=== PATIENT | female | born 1950 | race Hispanic/Latino ===

== ENCOUNTER 2023-10-20 12:03 | Observation (INO) | payer OTHER ==
[~2023-10-20] VITALS: Ht 157.5 cm; Wt 65.5 kg
[2023-10-20] MEDS ORDERED: SODIUM CHLORIDE 0.9% 1,000 ML IV ONE (15:00)
[2023-10-20 15:21] LABS: BASOPHILS 0.2 % (0-2); EOSINOPHILS 0.7 % (0-6); HEMATOCRIT 40.5 % (35.0-50.0); HEMOGLOBIN 13.8 g/dL (12.0-18.0); LYMPHOCYTES 11.3 % (24-44); MCH 30.5 (27-36); MCHC 34.2 g/dl (30-36); MCV 89.4 fl (81-99); MONOCYTES 10.3 % (0-12); NEUTROPHILS 77.5 % (39-80); PLATELET COUNT 186 K/uL (140-440); RBC 4.53 M/ul (4.3-5.7); RDW 12.4 (10.5-15.0)
[2023-10-20] MEDS ORDERED: HYDROmorphone HCL 1 MG/ML SYR IV PRN ×3 (15:30→18:15)
[2023-10-20 15:35] LABS: ALBUMIN 3.9 g/dL (3.4-5.0); ALBUMIN/GLOBULIN RATIO 1.05 (1.1-2.4); BILIRUBIN, TOTAL 1.3 ng/dL (0.2-1.0); BUN/CREATININE RATIO 21.78 (6.0-28.6); CALCIUM 9.5 mg/dL (8.5-10.1); CREATININE, SERUM 1.01 mg/dL (0.55-1.02); PROTEIN, TOTAL 7.6 g/dL (6.4-8.2)
[2023-10-20 17:45] VITALS: BP 156/81
--- NOTE | 2023-10-20 17:54 | NUR ---
1724 THIS RN TO ER, RECEIVES REPORT FROM KAYLEE ROMERO. PT ESCORTED TO MED-SURG ROOM 123 AT 1735 VIA [facility]. PT AMBULATES FROM [place] TO BED WITH STEADY GAIT. SPOUSE AT BEDSIDE. BELONGINGS IN SAH BAG IN ROOM. VSS. K 9 POLICE OFFICER IN ROOM USED FOR COMMUNICATIONS. VERBAL REPORT PROVIDED TO KAYLEE TRIMBLE AND JOCELYN ROJAS RN.
[2023-10-20] MEDS ORDERED: ACETAMINOPHEN 325 MG TAB PO PRN (18:15)
[2023-10-20] MEDS ORDERED: PROCHLORPERAZINE EDISYLATE 10 MG/2 ML VIAL IV PRN (18:15)
[2023-10-20] MEDS ORDERED: ondansetron HCL 4 MG/2 ML VIAL IV PRN ×2 (18:15)
[2023-10-20] MEDS ORDERED: ACETAMINOPHEN 650 MG SUPP PR PRN (18:15)
[2023-10-20] MEDS ORDERED: DEXTROSE 5% - LACTATED RINGERS 1,000 ML IV SCH ×2 (18:15)
[2023-10-20] MEDS ORDERED: HYDROCODONE/ACETA 5/325 TAB PO PRN (18:15)
[2023-10-20] MEDS ORDERED: PANTOPRAZOLE SODIUM 40 MG/10 ML VIAL IV SCH (18:19)
[2023-10-20] MEDS ORDERED: ENOXAPARIN SODIUM 40 MG/0.4 ML SYR SUB-Q SCH (18:19)
[2023-10-20] MEDS ORDERED: CEFTRIAXONE/SODIUM CHLORIDE 2 GM/100 ML PIGGYBACK IV SCH (18:28)
--- NOTE | 2023-10-20 18:52 | NUR ---
DILAUDID 0.5MG IV ADMIN AT THIS TIME FOR REPORTS OF 8/10 ABDOMINAL PAIN. PATIENT DENIES NAUSEA.
--- NOTE | 2023-10-20 19:04 | NUR ---
PT ADMISSION HISTORY AND ASSESSMENT COMPLETED WITH FORMING PROCESS LINE WORKER OZZY #[id number].
--- NOTE | 2023-10-20 19:15 | NUR ---
REPORT RECEIVED FROM DAY SHIFT RN. PT LYING IN BED TALKING ON PHONE. NO NEEDS AT THIS TIME. WHITE BOARD UPDATED. CALL LIGHT IN REACH. BED ALARM FOR SAFETY.
--- NOTE | 2023-10-20 19:46 | NUR ---
prn zofran given for reported nausea-see emar. pt reported recent emesis-unmeasured amount following drinking some water. hospital provided interpretor utilitized. iv site wnl, iv abx recently completed. pt denies additional needs, call light in reach. primary chico andrade now in room with pt.
[2023-10-20 19:57] VITALS: BP 148/66
[2023-10-20 20:00] VITALS: BP 148/66
--- NOTE | 2023-10-20 20:03 | NUR ---
PT WITH CONTINUED EMESIS AND NAUSEA AFTER 4MG ZOFRAN GIVEN UNDER ER BRIDGE ORDER. ADDITIONAL 4MG ZOFRAN GIVEN TO EQUAL 8MG ORDERED. IVF INFUSING PER ORDER. PT DENIES FURTHER NEEDS. RELIEF MAN USED. BED ALARM FOR SAFETY.
[2023-10-20 20:05] LABS: BILIRUBIN, URINE NEGATIVE (negative); BLOOD/HGB, URINE NEGATIVE (Negative); KETONE, URINE NEGATIVE (Negative); LEUK ESTERASE, URINE NEGATIVE (negative); NITRITE, URINE NEGATIVE (negative); PH, URINE 6.5 (5-7)
--- NOTE | 2023-10-20 22:03 | NUR ---
PT RESTING WITH EYES CLOSED. AWAKENS EASILY. HOSPITAL PROVIDED LATCHER USED FOR INTERACTION. EVENING ASSESSMENT COMPLETE. SCHEDULED MEDS ADMIN PER EMAR. PT DENIES PAIN OR NAUSEA AT THIS TIME. BOWEL TONES ACTIVE. ABD SOFT. PT NPO. ORAL CARE SUPPLIES PROVIDED. PT DENIES QUESTIONS OR CONCERNS. CALL LIGHT IN REACH. BED ALARM FOR SAFETY.
[2023-10-21] VITALS (9 sets, daily range): BP systolic 122–148; BP diastolic 61–97
--- NOTE | 2023-10-21 00:28 | NUR ---
PT RESTING ON LEFT SIDE WITH EYES CLOSED. RESPIRATIONS EVEN. CALL LIGHT IN REACH.
--- NOTE | 2023-10-21 02:24 | NUR ---
PT AWAKE IN BED. VS OBTAINED. UP WITH SBA TO VOID. BACK TO BED, SUREKHA WELL. GAIT STEADY. PT REPORTS BILAT HIP PAIN 09/25. PRN FOR PAIN ADMIN PER EMAR. ABD ASSESSMENT UNCHANGED. PT REMAINS NPO. ORAL CARE SUPPLIES AT BEDSIDE. IVF INFUSING PER ORDER. PT DENIES FURTHER NEEDS. BED ALARM FOR SAFETY. CALL LIGHT IN REACH. CRITICAL CARE EDUCATOR ID #[id number] USED FOR THIS INTERACTION.
--- NOTE | 2023-10-21 04:32 | NUR ---
PT RESTING IN BED WITH EYES CLOSED. RESPIRATIONS EVEN. CALL LIGHT IN REACH.
[2023-10-21 05:27] LABS: BASOPHILS 0.3 % (0-2); EOSINOPHILS 0.5 % (0-6); HEMATOCRIT 35.7 % (35.0-50.0); HEMOGLOBIN 12.2 g/dL (12.0-18.0); LYMPHOCYTES 13.8 % (24-44); MCH 30.7 (27-36); MCHC 34.3 g/dl (30-36); MCV 89.6 fl (81-99); MONOCYTES 13.1 % (0-12); NEUTROPHILS 72.3 % (39-80); PLATELET COUNT 165 K/uL (140-440); RBC 3.98 M/ul (4.3-5.7); RDW 12.2 (10.5-15.0)
--- NOTE | 2023-10-21 05:29 | NUR ---
iv pump alarming, issue resolved. iv site wnl, fluids infusing wnl. lab in room for blood draw, call light in reach.
[2023-10-21 05:50] LABS: ALBUMIN 3.1 g/dL (3.4-5.0); ALBUMIN/GLOBULIN RATIO 0.91 (1.1-2.4); ANION GAP 12.7 (7-21); BILIRUBIN, TOTAL 0.6 ng/dL (0.2-1.0); BUN/CREATININE RATIO 17.28 (6.0-28.6); CALCIUM 8.5 mg/dL (8.5-10.1); CREATININE, SERUM 0.81 mg/dL (0.55-1.02); MAGNESIUM 1.8 mg/dL (1.8-2.4); PHOSPHORUS, INORGANIC 2.9 mg/dL (2.5-4.9); POTASSIUM 3.7 mmol/L (3.5-5.1); PROTEIN, TOTAL 6.5 g/dL (6.4-8.2)
--- NOTE | 2023-10-21 05:51 | NUR ---
IV PUMP ALARMING, BAG NEAR EMPTY. pt UP SBA TO VOID AND BACK IN BED, BED ALARM RESUMED AND CALL LIGHT IN REACH. IV SITE WNL. PRIMARY RN IN ROOM FOR AM MED PASS. NO FURTHER NEEDS OR CONCERNS VERBALIZED.
--- NOTE | 2023-10-21 05:57 | CONS ---
[facility] [address], [place] [address] Signed DATE OF CONSULTATION: 10/20/2023 CHIEF COMPLAINT: Right lower quadrant abdominal pain. HISTORY OF PRESENT ILLNESS: Pushpa is a 73-year-old speaking female who apparently was having some lower abdominal pain after eating some watermelon a few days ago. The rest of the family is not ill. She seems to be more in the right lower quadrant than anywhere else. She came to emergency room with her . We did use an liquefied natural gas plant operator on our phone line. Her white count is borderline at 11.2. She seems to be mildly tender to deep palpation in the right lower quadrant. Her liver function tests are elevated and urinalysis was pending. The CT scan showed an 8 mm appendix with possibly some mild mucosal hyperemia, but there is some air in the distal appendix. There was also small locule of air in the bladder and the anterior bladder wall was mildly thickened next to a piece of small intestine. Given the above findings, I was asked to admit the patient as a local general surgeon mainly for concerns of appendicitis. I had met with Pushpa and her here in the ER. PAST MEDICAL HISTORY: Hypertension, obesity, osteoarthritis, and degenerative disc disease. PAST SURGICAL HISTORY: Includes none. SOCIAL HISTORY: She does not smoke or drink. She has no primary care provider. Apparently, her is Carter at [phone]. FAMILY HISTORY: None. REVIEW OF SYSTEMS: We did our best to get through 10 systems with her with the help of the liquefied natural gas plant operator. There were no new findings. ALLERGIES: None. MEDICATIONS: None. PHYSICAL EXAMINATION: Electronically Signed By: PURNIMA HARRIS MD 10/21/23 0557 PATIENT NAME: PUSHPA COLBY CONSULTATION DATE OF : 50 REPORT #: [id number] PHYSICIAN: PURNIMA HARRIS MD PCP: NO PRIMARY CARE PHYSICIAN REPORT IS CONFIDENTIAL AND NOT TO BE RELEASED WITHOUT AUTHORIZATION [facility] [address], [place] [address] Signed VITAL SIGNS: Blood pressure is 156/81, heart rate 79, respiratory rate 18, temperature is 98.8. She is 98% on room air. She is 5 feet 2 inches, 65 kg with a body mass index of 26. GENERAL: Pushpa is a 73-year-old female, lying supine in her ER bed watching TV. Her is in the room. Her nurse came with this and we do have the liquefied natural gas plant operator on the telephone. She is in no acute distress. LUNGS: Clear to auscultation bilaterally. HEART: Regular rate and rhythm without murmurs. ABDOMEN: Obese and soft, but she seems to be mildly tender to deep palpation in the right lower quadrant. LABORATORY DATA: Her white blood count 11.1, hemoglobin 13, neutrophils 77. Electrolytes unremarkable. Total bilirubin 1.3, AST 72, ALT 145, alkaline phosphatase 108, albumin 3.9 lipase 35. Urinalysis pending. RADIOGRAPHIC STUDIES: CT scan of abdomen and pelvis is reviewed and the liver, gallbladder are seemed to be unremarkable. She has an 8 mm appendix with some very mild mucosal hyperemia, but there was air in the distal appendix. She also has some mild thickening to the anterior urinary bladder wall with a small locule of air next to a loop of small bowel. ASSESSMENT AND PLAN: Pushpa is a 73-year-old woman, I have been asked to admit as a local general surgeon on-call mainly for appendicitis. She does seem to have some pain to deep palpation in the right lower quadrant. There was also question whether or not she might have cystitis or urinary tract infection or even a possible fistula, although doubtful. She did complain of dysuria. Also her liver function tests were elevated and the CT scans are unremarkable. At this point, we are going to get her admitted and perform an ultrasound of the liver and gallbladder and will follow up on the urinalysis. We will repeat some labs in the morning. We will hold off any antibiotics tonight. I have reviewed this with Pushpa and her . They have expressed understanding, agreed above plan. Purnima Harris MD ALB/MODL /[id number] Electronically Signed By: PURNIMA HARRIS MD 10/21/23 0557 PATIENT NAME: PUSHPA COLBY CONSULTATION DATE OF : 50 REPORT #: [id number] PHYSICIAN: PURNIMA HARRIS MD PCP: NO PRIMARY CARE PHYSICIAN REPORT IS CONFIDENTIAL AND NOT TO BE RELEASED WITHOUT AUTHORIZATION [address] [address] Signed cc: Patient chart Purnima Harris MD Copies: PURNIMA HARRIS MD ~ Electronically Signed By: PURNIMA HARRIS MD 10/21/23 0557 PATIENT NAME: TONI HERRONTOÑOPUSHPA CONSULTATION DATE OF : 50 REPORT #: [id number] PHYSICIAN: PURNIMA HARRIS MD PCP: NO PRIMARY CARE PHYSICIAN REPORT IS CONFIDENTIAL AND NOT TO BE RELEASED WITHOUT AUTHORIZATION
--- NOTE | 2023-10-21 06:15 | NUR ---
NEW BAG IVF INFUSING PER ORDER. IV ABX INFUSING WNL. PT DENIES PAIN OR NAUSEA. NO FURTHER NEEDS. BED ALARM FOR SAFETY. CALL LIGHT IN REACH.
--- NOTE | 2023-10-21 07:10 | NUR ---
REPORT RECEIVED FROM DIRECTOR OF FINANCIAL REPORTING RN MARION. PATIENT IS LYING IN BED AND ON THEIR PHONE. RESPIRATIONS ARE EVEN AND UNLABORED. PATIENT STATED NO NEEDS AT THIS TIME. CALL LIGHT AND PERSONAL BELONGINGS ARE WITHIN REACH.
--- NOTE | 2023-10-21 07:56 | NUR ---
Board has been updated and call light has been placed within reach
--- NOTE | 2023-10-21 08:40 | NUR ---
0900 MEDICATIONS ADMINISTERED PER THE EMAR. FULL ASSESSMENT COMPLETE AND DOCUMENTED IN THE CHART. PATIENT IS ON ROOM AIR AND LUNG SOUNDS ARE CLEAR BILATERALLY. CARDIAC WITH NORMAL S1 AND S2 ON AUSCULTATION. RADIAL PULSES ARE STRONG BILATERALLY. SENSATION INTACT WITH NO COMPLAINTS OF NUMBNESS AND TINGLING. BOWEL TONES ARE ACTIVE IN ALL FOUR QUADRANTS. PATIENT LAST BOWEL MOVEMENT WAS 10/19/23. PATIENT WITH AN IV IN THE RAC. IV FLUSHED WITH 10 ML NORMAL SALINE AND THE IV DRESSING IS CLEAN, DRY, AND INTACT. IV ROCEPHIN IS INFUSING AT 200 ML/HR. PATIENT WITH NO COMPLAINTS OF PAIN AT THIS TIME. PATIENT SURGERY WIPE DOWN COMPLETE. PATIENT IS NOW SITTING UPRIGHT IN THE CHAIR WITH A VISITOR SITTING ON THE COUCH. BED LINENS CHANGED A T THIS TIME. ADVERTISING TEACHER ELOISA WHITE ([id number]) USED THROUGHOUT THE PATIENT INTERACTION. PATIENT STATED NO FURTHER NEEDS AT THIS TIME. CALL LIGHT AND PERSONAL BELONGINGS ARE WITHIN REACH.
[2023-10-21] MEDS ORDERED: CEFTRIAXONE/SODIUM CHLORIDE 2 GM/100 ML PIGGYBACK IV SCH (09:00)
[2023-10-21] MEDS ORDERED: TELMISARTAN40 MG PO (09:22)
[2023-10-21] MEDS ORDERED: ATORVASTATIN CA10 MG PO (09:22)
--- NOTE | 2023-10-21 09:41 | NUR ---
UR CLINICAL REVIEW: FELIZ KENYON, MEETS OBS MEDICARE OBS 10/20/23 @ 1652 ORDER MATCHES STATUS NO AUTH REQUIRED PER MEDICARE RULES PLAN TO DC TO HOME WHEN STABLE 10/22/23
--- NOTE | 2023-10-21 09:58 | NUR ---
PATIENT IS LYING IN THE CHAIR WITH THE BILATERAL LOWER EXTREMITIES ELEVATED. D5LR MAINTENANCE FLUIDS ARE INFUSING AT 100 ML/HR. ROCEPHIN INFUSION COMPLETE. CALL LIGHT AND PERSONAL BELONGINGS ARE WITHIN REACH.
--- NOTE | 2023-10-21 10:20 | NUR ---
PATIENT IS LYING IN THE CHAIR WITH EYES CLOSED AND RESPIRATIONS ARE EVEN AND UNLABORED. PATIENT WITH THE BILATERAL LOWER EXTREMITIES ELEVATED. PATIENT WITH VISITOR SITTING ON THE COUCH. CALL LIGHT AND PERSONAL BELONGINGS ARE WITHIN REACH.
--- NOTE | 2023-10-21 10:31 | NUR ---
PATIENT TO SURGERY WITH KAYLEE PAN.
--- NOTE | 2023-10-21 10:52 | NUR ---
PATIENT IS OFF THE FLOOR AT THIS TIME AND IN DAY SURGERY/OR.
[2023-10-21] MEDS ORDERED: KETOROLAC TROMETHAMINE 30 MG/ML VIAL ONE (11:17)
[2023-10-21] MEDS ORDERED: LIDOCAINE HCL 1% 30 ML SDV ONE (11:17)
[2023-10-21] MEDS ORDERED: DEXAMETHASONE SOD PHOS 4 MG/ML VIAL ONE (11:17)
[2023-10-21] MEDS ORDERED: ondansetron HCL 4 MG/2 ML VIAL ONE (11:17)
[2023-10-21] MEDS ORDERED: propofoL 200 MG/20 ML VIAL ONE (11:17)
[2023-10-21] MEDS ORDERED: ROCURONIUM BROMIDE 50 MG/5 ML SYR ONE (11:17)
[2023-10-21] MEDS ORDERED: fentaNYL citrate 100 MCG/2 ML VIAL ONE (11:19)
--- NOTE | 2023-10-21 11:19 | NUR ---
Patient left for surgery, no request from patient
--- NOTE | 2023-10-21 11:19 | NUR ---
PATIENT REMAINS OFF THE FLOOR AT THIS TIME IN DAY SURGERY/OR. EDUCATION ON LAPROSCOPIC APPENDECTOMY PLACED ON THE PATIENTS SIDE TABLE.
[2023-10-21] MEDS ORDERED: ePHEDrine sulfate 50 MG/ML AMP ONE (11:44)
[2023-10-21] MEDS ORDERED: SUGAMMADEX SODIUM 200 MG/2 ML ML ONE (12:14)
--- NOTE | 2023-10-21 12:38 | NUR ---
PATIENT REMAINS OFF THE FLOOR IN DAY SURGERY/OR. PATIENT WITH A VISITOR SITTING UPRIGHT ON THE COUCH WITH EYES CLOSED AND RESPIRATIONS ARE EVEN AND UNLABORED. PATIENT VISITOR WITH NO NEEDS AT THIS TIME.
[2023-10-21] MEDS ORDERED: ACETAMINOPHEN 500 MG TAB PO PRN (13:00)
[2023-10-21] MEDS ORDERED: IBUPROFEN 800 MG TAB PO PRN (13:00)
[2023-10-21] MEDS ORDERED: OXYCODONE HCL 5 MG TAB PO PRN (13:00)
--- NOTE | 2023-10-21 13:05 | NUR ---
10/21/23 1305 Reina Altamirano 1235 PT ARRIVED IN PACU NON RESPONSIVE TO NOXIOUS STIMULI WITH OPA IN PLACE. REPOSITIONED HEAD TO RIGHT SIDE TO KEEP AIRWAY OPEN. 1240 ICE TO ABD. 1250 PT REACTIVE. OPA REMOVED. 1255 NO C/O'S PAIN. 1300 OXYGEN REMOVED. SATS 96-100% ON RA.
[2023-10-21] MEDS ORDERED: OXYCODONE HCL5 MG PO (13:28)
[2023-10-21] MEDS ORDERED: TYLENOL EXTRA500 MG PO (13:29)
[2023-10-21] MEDS ORDERED: DULCOLAX5 MG PO (13:31)
--- NOTE | 2023-10-21 13:34 | NUR ---
REPORT RECEIVED FROM DAY SURGERY/STEEPING PRESS OPERATOR. VITAL SIGNS TAKEN AND DOCUMENTED IN THE CHART. ASSESSMENT COMPLETE AND DOCUMENTED IN THE CHART. PATIENT IS LYING IN BED WITH HIS SITTING ON THE COUCH AT BEDSIDE. PATIENT IS ALERT AND ORIENTED TIMES FOUR. PATIENT IS ON ROOM AIR AND LUNG SOUNDS ARE CLEAR BILATERALLY IN ALL LUNG MORAN. CARDIAC WITH NORMAL S1 AND S2 ON AUSCULTATION. RADIAL PULSES ARE STRONG BILATERALLY. SENSATION INTACT WITH NO COMPLAINTS OF NUMBNESS AND TINGLING. PATIENT WITH NO COMPLAINTS OF PAIN AT THIS TIME. BOWEL TONES ARE ACTIVE IN ALL FOUR QUADRANTS. LAST BOWEL MOVEMENT WAS 10/18/23. 3 LAP SITES NOTED THAT ARE CLEAN, DRY, AND INTACT. PATIENT TO ADVANCE DIET TOLERATED. PATIENT WITH A WATER, APPLE JUICE, AND JELLO ON THE BEDSIDE TABLE. PATIENT WITH NO COMPLAINTS OF NAUSEA ND VOMITING. PATIENT IV SITE FLUSHED WITH 10 ML NORMAL SALINE AND DRESSING IS CLEAN, DRY, AND INTACT. IV D5LR IS INFUSING AT 75 ML/HR. FOOD SERVICE SALES REPRESENTATIVES HEATHER ([id number]) USED THROUGHOUT THIS PATIENT INTERACTION. PATIENT STATED NO FURTHER NEEDS AT THIS TIME. CALL LIGHT AND PERSONAL BELONGINGS ARE WITHIN REACH.
--- NOTE | 2023-10-21 13:39 | NUR ---
medications reconciled
--- NOTE | 2023-10-21 13:53 | EKG ---
[facility] [address] [facility] [place], [place] [address] Signed Normal sinus rhythm Normal ECG No previous ECGs available Confirmed by Kamila Prajapati MD ([id number]) on 10/21/2023 1:53:29 PM Electronically Signed By: KAMILA PRAJAPATI 10/21/23 1353 PATIENT NAME: JACINTA COLBY Electrocardiogram DATE OF : 50 PHYSICIAN: KAMILA PRAJAPATI REPORT #: [id number] REPORT IS CONFIDENTIAL AND NOT TO BE RELEASED WITHOUT AUTHORIZATION
--- NOTE | 2023-10-21 14:13 | NUR ---
VITAL SIGNS TAKEN AND DOCUMENTED IN THE CHART. IV WITH D5LR INFUSING AT 75 ML/HR. PATIENT DRANK THE APPLE JUICE AND ATE THE JELLO. PATIENT WITH NO COMPLAINTS OF NAUSEA OR PAIN AT THIS TIME. PATIENT REMAINS SITTING ON THE COUCH. WELDING MACHINE ASSEMBLER MYRA ([id number]) USED THROUGHOUT THIS PATIENT INTERACTION. PATIENT STATED NO FURTHER NEEDS AT THIS TIME. CALL LIGHT AND PERSONAL BELONGINGS ARE WITHIN REACH.
--- NOTE | 2023-10-21 14:15 | NUR ---
PATIENT ALERT AND ORIENTED IN BED. SPOUSE AT BEDSIDE. INTER[employer]ARY [employer] SERVICES LIBRARIAN SERVICE USED DAISY #[id number] INTERPRETS USING VIDEO. PATIENT LIVES IN HOUSE WITH HER . 2 STEPS TO GET INSIDE. NO ISSUES WITH STEPS. STATES SHE HAS NO DME. PATIENT IS ABLE TO DRIVE AT [place]. DENIES ANY FINANCIAL ISSUES. PATIENT STATES SHE DOES HAVE A PRIMARY PROVIDER IN [place] BUT SHE CAN NOT REMEMBER HER NAME. STATES SHE DOES NOT HAVE ANY OTHER NEEDS AT THIS TIME. AGREES. PLANS TO DC HOME LATER TODAY.
--- NOTE | 2023-10-21 14:20 | NUR ---
CALLED [facility]. THEY HAVE PATIENT'S PCP IGNACIA CATES PA-C.
--- NOTE | 2023-10-21 15:12 | OR ---
[facility] [address], [place] [address] Signed DATE OF OPERATION: 10/21/2023 SURGEON: Purnima Harris MD PREOPERATIVE DIAGNOSIS: Early acute appendicitis. POSTOPERATIVE DIAGNOSIS: Early acute appendicitis. PROCEDURE: Laparoscopic appendectomy. ESTIMATED BLOOD LOSS: None. INDICATIONS: Jacinta is a 73-year-old female, who was having some lower abdominal pain after eating watermelon with her family. It was worse on the right than on the left. No one else in the family was sick. After a couple of days, she decided to come to the emergency room. Her vital signs were fine except she probably has some untreated hypertension. She tells me she has no primary care provider. They do live in [place], [place]. She does recognize the [facility]. She was mildly tender to very deep palpation in the right lower quadrant. White count was 11.1, and we noticed that her liver function tests were up a little bit. We did get repeat labs and the liver function tests were improved after some hydration. We did an ultrasound of the liver and gallbladder and it was fine. We looked at the liver today during surgery and it looks like she has fatty liver. The gallbladder seems to be fine. We also noticed that there was thickening to the anterior bladder wall with a small locule of air. Her urinalysis came back completely fine. The CT scan did show an unremarkable liver and gallbladder, but it did show an 8 mm appendix with some very mild mucosal hyperemia, but there was air in the distal appendix. I have been asked to admit her as a general surgeon database administration associate with respect to the above. She did well overnight. She still was about the same in the morning. We had held back antibiotics. After a long discussion with Jacinta and her with the help of the phone line steel layer, we decided to proceed with laparoscopic appendectomy. I brought a brochure today written in Senegalese so I could show her the pictures. I think she has the overall understanding. We asked our staff to print off some literature on appendicitis written in Vietnamese. She understands we can do this laparoscopically. There is risk including, but not limited to bleeding, infection, scarring, change in contour of the skin, damage to bowel, damage Electronically Signed By: PURNIMA HARRIS MD 10/21/23 1512 PATIENT NAME: JACINTA COLBY OPERATIVE REPORT DATE OF : 50 REPORT #: [id number] PHYSICIAN: PURNIMA HARRIS MD PCP: NO PRIMARY CARE PHYSICIAN REPORT IS CONFIDENTIAL AND NOT TO BE RELEASED WITHOUT AUTHORIZATION [facility] [address] [place], [place] [address] Signed to main bile duct and incisional hernias. She had expressed understanding and wished to proceed. PROCEDURE IN DETAIL: Jacinta was taken into our operating room and placed in the supine position under general endotracheal tube anesthesia. She was on preoperative antibiotics along with subcutaneous Lovenox. SCDs were utilized. Roblero catheter was inserted with return of clear yellow urine without difficulty. She was then prepped and draped in the usual sterile fashion. All trocars were placed in their usual positions under direct visualization of the camera without difficulty. We looked at the gallbladder and the liver. The gallbladder seems fine. The liver seems like she may have some fatty liver. It is a little bit yellow and the surface is a little bit nodular. The area around the bladder seemed unremarkable as well. We then elevated the appendix and the right lower quadrant. It was a little thickened and hyperemic. We cleared off the base of the appendix and then divided it from the cecum with the help of the linear stapler. We then used a vascular load to divide the mesoappendix. There was good hemostasis on both staple lines. The appendix was then placed into an EndoCatch bag and taken out through the right subcostal trocar site. We used our laparoscopic suturing device to pass 0-Vicryl suture on either side of the fascia of the right subcostal trocar site. This was tied down to close this fascia primarily. After this, the gas was allowed to escape and remaining two trocars were removed. We closed the fascia of the supraumbilical trocar site with interrupted yojmvk-mo-vazot and simple 0-Vicryl sutures. Local anesthetic was injected into all trocar sites. Each trocar site was irrigated and suctioned out until clear. We closed the skin and dermis of each trocar site with interrupted 3-0 subcuticular Monocryl sutures. Dry gauze and tape was applied to all three incisions. The Roblero catheter was removed without difficulty. Jacinta was awakened from her anesthesia, extubated in the OR, and taken to recovery room in stable condition. Purnima Harris MD ALB/MODL /[id number] cc: Purnima Harris MD Electronically Signed By: PURNIMA HARRIS MD 10/21/23 1512 PATIENT NAME: JACINTA COLBY OPERATIVE REPORT DATE OF : 50 REPORT #: [id number] PHYSICIAN: PURNIMA HARRIS MD PCP: NO PRIMARY CARE PHYSICIAN REPORT IS CONFIDENTIAL AND NOT TO BE RELEASED WITHOUT AUTHORIZATION [address], [place] [address] Signed Copies: PURNIMA HARRIS MD ~ Electronically Signed By: PURNIMA HARRIS MD 10/21/23 1512 PATIENT NAME: JACINTA COLBY OPERATIVE REPORT DATE OF : 50 REPORT #: [id number] PHYSICIAN: PURNIMA HARRIS MD PCP: NO PRIMARY CARE PHYSICIAN REPORT IS CONFIDENTIAL AND NOT TO BE RELEASED WITHOUT AUTHORIZATION
--- NOTE | 2023-10-21 15:15 | NUR ---
VITAL SIGNS TAKEN AND DOCUMENTED IN THE CHART. PATIENT WITH NO COMPLAINTS OF NAUSEA OR PAIN. PATIENT STATED NOT NEEDING TO URINATE. ACCOUNT DIRECTOR JORGE ([id number]) USED THROUGHOUT THIS PATIENT INTERACTION. PATIENT WITH HER SITTING ON THE COUCH AT BEDSIDE. IV SITE FLUSHED WITH 10 ML NORMAL SALINE. D5LR IS INFUSING AT 75 ML/HR. IV DRESSING IS CLEAN, DRY, AND INTACT. PATIENT STATED NO FURTHER NEEDS AT THIS TIME. CALL LIGHT AND PERSONAL BELONGINGS ARE WITHIN REACH.
--- NOTE | 2023-10-21 15:16 | NUR ---
PT NOT AVAILABLE FOR VISIT. PROVIDED PRAYER.
--- NOTE | 2023-10-21 17:41 | NUR ---
Nurse notified me to give patient crakers. Crackers with a drink was given. Patient finished crakers and nurse has been notified.
--- NOTE | 2023-10-29 14:26 | PATH ---
[facility] [address] [place], [place] [address] Signed SPECIMEN(S): A APPENDIX SPECIMEN SOURCE: A. APPENDIX CLINICAL HISTORY: acute appendicitis FINAL PATHOLOGIC DIAGNOSIS: Appendix, appendectomy: - Benign vermiform appendix with focal acute appendicitis. JVR:clv MICROSCOPIC EXAMINATION: Histologic sections of all submitted blocks are examined by light microscopy. These findings, together with the gross examination, support the pathologic diagnosis. GROSS DESCRIPTION: The specimen, labeled and designated "Rohit Colby, " and designated on the requisition "appendix," is received in formalin and consists of Specimen: Appendix with mesoappendix. Dimensions: 4.6 x 0.9 cm. Serosa: Pale pink with hyperemic subserosal vessels. Defect: Not grossly identified. Inking: Proximal resection margin inked blue. mesoappendix stapled resection margin inked green. Mucosa: [place]-red and finely granular. Fecalith: Not grossly identified. Additional: None. Entirely submitted in (A1). FB (under the direct supervision of a pathologist) The Gross Description was prepared using a voice recognition system. The report was reviewed for accuracy; however, sound-alike word errors, addition and/or deletions may occur. If there is any question about this report, please contact Client Services. PERFORMING LABORATORY: Technical component was performed by [facility], [address] [place] [id number] (CLIA# [id number]). Professional interpretation was performed by [facility] [place] [facility], [address] PATIENT NAME: JACINTA COLBY PATHOLOGY DATE OF : 50 REPORT #: [id number] PHYSICIAN: GLORIA PATHOLOGY PCP: IGNACIA CATES PA-C REPORT IS CONFIDENTIAL AND NOT TO BE RELEASED WITHOUT AUTHORIZATION [address] [address], [place] [address] (CLIA#: [id number]). Diagnostician: Kevin Elmore MD Pathologist Electronically Signed 10/29/2023 Copies: ~ PATIENT NAME: JACINTA COLBY PATHOLOGY DATE OF : 50 REPORT #: [id number] PHYSICIAN: GLORIA LARES PCP: IGNACIA CATES PA-C REPORT IS CONFIDENTIAL AND NOT TO BE RELEASED WITHOUT AUTHORIZATION
== END 2023-10-21 18:17 | disposition home or self-care (01) ==
LOC: ED 12:03 → MS 12:07
PROVIDERS: Emergency Medicine; ADMIT Colon & Rectal Surgery; ATTEND Colon & Rectal Surgery
PROC: 0DTJ4ZZ Resection of Appendix, Percutaneous Endoscopic Approach (ICD-10-PCS; principal; 2023-10-21 10:00)
DX: K35.80 Unspecified acute appendicitis (principal); I10 Essential (primary) hypertension
CPT/HCPCS: 00840; 36415; 74177; 76705; 80053; 81003; 83690; 83735; 84100; 85025; 88304; 93005; 93010; 96361; 96365; 96372; 96375; 96376; 99285-25; G0378; J0696; J0780; J1100; J1170; J1650; J1885; J2405; J2470; J2704; J3010; J3490; J7030; J7121; Q9967

== ENCOUNTER 2023-11-07 11:18 | Emergency (ER) | payer MEDICARE ==
[~2023-11-07] VITALS: Ht 157.5 cm; Wt 65.8 kg
[~2023-11-07 11:18] MED LIST: ATORVASTATIN CA10 MG PO; DULCOLAX5 MG PO; OXYCODONE HCL5 MG PO; TELMISARTAN40 MG PO; TYLENOL EXTRA500 MG PO
[2023-11-07 14:27] VITALS: BP 168/84
== END 2023-11-07 14:27 | disposition home or self-care (01) ==
LOC: ED 11:18
DX: K91.89 Other postprocedural complications and disorders of digestive system (principal); K42.9 Umbilical hernia without obstruction or gangrene; Y83.8 Other surgical procedures as the cause of abnormal reaction of the patient, or of later complication, without mention of misadventure at the time of the procedure; I10 Essential (primary) hypertension; Z79.899 Other long term (current) drug therapy
CPT/HCPCS: 74176; 99283-25